=== PATIENT | female | born 1940 | race Two or more races ===

== ENCOUNTER → 2018-08-22 11:47 | Outpatient (CLI) | payer OTHER ==
[~2018-08-22 11:47] MED LIST: CELEXA10 MG; CENTRUM CARDIO1 EACH PO; NEURIN SL; PROTONIX40 MG PO; WELLBUTRIN75 MG
== END | disposition home or self-care (01) ==
LOC: LAB 11:47
DX: I10 Essential (primary) hypertension (principal); E11.9 Type 2 diabetes mellitus without complications; E03.8 Other specified hypothyroidism; E78.2 Mixed hyperlipidemia; J44.9 Chronic obstructive pulmonary disease, unspecified

== ENCOUNTER 2018-12-03 11:50 | Inpatient (IN) | payer OTHER ==
[~2018-12-03] VITALS: Ht 149.9 cm; Wt 45.8 kg
--- NOTE | 2018-12-03 12:35 | NUR ---
PACIENTE AL MOMENTO ESTABLE, SIGNOS VITALES ESTABLES, ALERTA Y ORIENTADA X3 REFIERE DIFICULTAD PARA RESPIRAR Y TOS PRODUCTIVA, AL MOMENTO SATURANDO A 90%; DRA. GO EVALUA PACIENTE Y ORDENA COLOCAR LA MISMA EN ASMA UNIT. SE PASA A DICHA AREA, SE CONTINUARA MONITOREANDO POR CAMBIOS.
--- NOTE | 2018-12-03 14:03 | NUR ---
MCNALLY EVALUA PTE. SE ORIENTA A PTE SOBRE [place] MEDICO. PTE REFIERE COMPRENDER. SE REALIZAN MUESTRAS DE LABORATORIO BAJO MEDIDAS ASEPTICAS. SE ADMINISTRA MEDICAMENTOS VALENCIA ORDEN MEDICA. SE NOTIFICA ABG Y TERAPIRA RESPIRATORIA.
[2018-12-06] MEDS ORDERED: ABANEU-SL TABL1 EACH SL (11:07)
== END 2018-12-16 13:02 | disposition home or self-care (01) | DRG 202 ==
LOC: ER 11:50 → MEDI 18:57 → SEC-K 18:57 → MEDI 21:43 → MEDJ 12-04 15:32
PROVIDERS: ADMIT Internal Medicine Cardiovascular Disease
PROC: 3E0F7GC Introduction of Other Therapeutic Substance into Respiratory Tract, Via Natural or Artificial Opening (ICD-10-PCS; 2018-12-03)
PROC: 4A033R1 Measurement of Arterial Saturation, Peripheral, Percutaneous Approach (ICD-10-PCS; 2018-12-03)
PROC: 0T9B70Z Drainage of Bladder with Drainage Device, Via Natural or Artificial Opening (ICD-10-PCS; 2018-12-03)
PROC: 8E0ZXY6 Isolation (ICD-10-PCS; 2018-12-04)
PROC: 02HV33Z Insertion of Infusion Device into Superior Vena Cava, Percutaneous Approach (ICD-10-PCS; principal; 2018-12-08)
DX: J45.32 Mild persistent asthma with status asthmaticus (principal); J80 Acute respiratory distress syndrome; J90 Pleural effusion, not elsewhere classified; R07.89 Other chest pain; Z99.81 Dependence on supplemental oxygen; B96.0 Mycoplasma pneumoniae [M. pneumoniae] as the cause of diseases classified elsewhere; K44.9 Diaphragmatic hernia without obstruction or gangrene

== ENCOUNTER → 2019-09-11 09:23 | Outpatient (CLI) | payer OTHER ==
[~2019-09-11 09:23] MED LIST changes: +ABANEU-SL TABL1 EACH SL
== END | disposition home or self-care (01) ==
LOC: LAB 09:23
DX: E11.9 Type 2 diabetes mellitus without complications (principal); E03.8 Other specified hypothyroidism; I10 Essential (primary) hypertension; E78.2 Mixed hyperlipidemia; N39.0 Urinary tract infection, site not specified